=== PATIENT | male | born 1985 | race Two or more races ===

== ENCOUNTER 2022-03-18 16:36 | Emergency (ER) | payer MEDICAID, OTHER ==
[~2022-03-18] VITALS: Ht 188 cm; Wt 154.2 kg
[2022-03-18 18:29] VITALS: BP 125/83
[2022-03-18] MEDS ORDERED: KETOROLAC TROMETH 60MG/2ML VIAL IM ONE (19:30)
[2022-03-18] MEDS ORDERED: IBUP800T27 PO (19:39)
[2022-03-18 20:15] LABS: Urine Bacteria NONE SEEN /hpf (None Seen); Urine Blood Negative /uL (Negative); Urine Mucus FEW (None Seen); Urine Specific Gravity 1.016 (1.001-1.035); Urine WBC 1 /hpf (0 - 3)
== END 2022-03-18 21:37 | disposition home or self-care (01) ==
LOC: ER 16:36
DX: B34.9 Viral infection, unspecified (principal); M79.10 Myalgia, unspecified site; E86.0 Dehydration; Z20.822 Contact with and (suspected) exposure to COVID-19
CPT/HCPCS: 36415; 81001; 87426; 87804; 96372; 99283; J1885